=== PATIENT | male | born 1990 | race Caucasian/White ===

== ENCOUNTER 2020-11-30 08:14 | Emergency (ER) | payer OTHER, SELFPAY ==
[2020-11-30 08:19] VITALS: BP 140/88; PULSE 102; RESP 16; O2SAT 100; BMI 25.8
--- NOTE | 2020-11-30 08:35 | PC.NURSE ---
patient removed c-collar and was visualized ambulating with steady gate out of the emergency department patient was alert and oriented, steady on feet
== END 2020-11-30 08:37 | disposition left against medical advice (07) ==
PROVIDERS: Emergency Provider Emergency Medicine
DX: M54.2 Cervicalgia (principal)
CPT/HCPCS: 99281; 99283